=== PATIENT | female | born 1990 | race Caucasian/White ===

== ENCOUNTER 2017-08-23 11:04 | Inpatient (IN) | payer OTHER ==
[~2017-08-23] VITALS: Ht 165.1 cm; Wt 74.6 kg
[~2017-08-23 11:04] MED LIST: ADVIL200 MG PO; ALBUTEROL2.5 MG/3 M IH; ALLEGRA ALLERG180 MG PO; AMBIEN10 MG PO; ATARAX,VISTARIL50 MG PO; BENADRYL50 MG PO; BUSPAR10 MG PO; CELEXA40 MG PO; DEPADE50 MG PO; DULERA 100 MCG/13 GM IH; FLUVOXAMINE MA100 MG PO; IRON325 M1 PO; IRON325 MG PO; LUVOX50 MG PO; MEDROXYPRO150 MG/1 M IM; MELATIN3 MG PO; MELATONIN3 MG PO; MIRALAX255 GM PO; MUCINEX DM ER1 EACH PO; MUCINEX FAST-M1 EAC2 PO; NALTREXONE HCL50 MG PO; PEPCID20 MG PO; PREVACID 24HR15 MG PO; PREVACID15 MG PO; PROAIR HFA8.5 GM IH; PROMETHAZINE HC25 M1 PO; PULMICORT FLE180 MCG IH; PULMICORT0.5 MG/21 IH; REVIA50 MG PO; SINGULAIR10 MG PO; TOPAMAX50 MG PO; TRAZODONE HCL100 MG PO; VENLAFAXINE HCL75 M3 PO; VITAMIN D2000 UNI1 PO; VITAMIN D31000 UNIT PO; WELLBUTRIN SR150 MG PO; WELLBUTRIN XL300 MG PO; ZONISAMIDE100 MG PO
[2017-08-23 12:47] LABS: BASOPHIL COUNT 0.1 K/uL (0-0.1); EOSINOPHIL (%) 4.3 % (0-5); EOSINOPHIL COUNT 0.3 K/uL (0-0.3); HEMATOCRIT 40.3 % (36.0-46.0); IMMATURE GRANULOCYTE COUNT 0.2 K/uL; INSTRUMENT ABS NEUTROPHIL CT 3.1 K/uL; LYMPHOCYTE COUNT 1.6 K/uL (1.0-2.8); MCH 30.3 PG (29.0-34.0); MCV 91.8 FL (83-99); MEAN PLAT.VOLUME 10.8 uM^3 (9.5-12.4); MONOCYTE (%) 10.1 % (3-12); MONOCYTE COUNT 0.6 K/uL (0-0.8); NEUTROPHIL (%) 54.4 % (45-76); NEUTROPHIL COUNT 3.1 K/uL (1.8-6.4); PLATELET COUNT 162 K/uL (156-360); RBC DIS.WIDTH-CV 11.9 % (11.8-14.6); RBC DIS.WIDTH-SD 40.3 % (39-53); RED BLOOD COUNT 4.39 M/uL (3.80-5.20); WHITE BLOOD COUNT 5.8 K/uL (4.1-10.2)
[2017-08-23 12:55] LABS: CHLORIDE 112 mEq/L (99-109); POTASSIUM 4.5 mEq/L (3.7-5.4); SODIUM 139 mEq/L (136-147)
[2017-08-23 12:57] LABS: GLUCOSE 93 mg/dL (70-99)
[2017-08-23 12:59] LABS: ANION GAP 8 MEQ/L (2-14)
[2017-08-23 13:00] LABS: SERUM ETHYL ALCOHOL < 10 mg/dL
[2017-08-23 13:01] LABS: GFR ESTIMATE (CALCULATED) > 59 mL/min/
[2017-08-23 13:02] LABS: UREA NITROGEN (BUN) 28 mg/dL (9-23)
[2017-08-23 13:03] LABS: ADD MIUA? NO; BILIRUBIN NEGATIVE; BLOOD NEGATIVE; COLOR YELLOW ((YELLOW)); GLUCOSE (STRIP) NEGATIVE; KETONES NEGATIVE; LEUKOCYTES NEGATIVE; NITRITE NEGATIVE; PROTEIN (STRIP) NEGATIVE; SPECIFIC GRAVITY 1.011 (1.000-1.030); UROBILINOGEN 0.2 MG/DL (0.2-1.0)
[2017-08-23 13:11] LABS: AMPHETAMINE NEGATIVE (500 ng/mL); BARBITURATES NEGATIVE (200 ng/mL); BENZODIAZEPINES NEGATIVE (150 ng/mL); COCAINE NEGATIVE (150 ng/mL); INTERNAL CONTROLS VALID? YES; METHADONE NEGATIVE (200 ng/mL); METHAMPHETAMINE NEGATIVE (500 ng/mL); OPIATES (MORPHINE) NEGATIVE (100 ng/mL); OXYCODONE NEGATIVE (100 ng/mL); PHENCYCLIDINE NEGATIVE (25 ng/mL); PROPOXYPHENE NEGATIVE (300 ng/mL); THC CANNABINOIDS NEGATIVE (50 ng/mL); TRICYCLIC ANTIDEPRESSANTS NEGATIVE (300 ng/mL)
[2017-08-23 13:12] LABS: QUANTITATIVE HCG < 4.0 MIU/ML
[2017-08-23 15:25] VITALS: BP 101/60
[2017-08-23] MEDS ORDERED: TOPAMAX100 MG PO (16:00)
[2017-08-23] MEDS ORDERED: COGENTIN0.5 MG PO (16:02)
[2017-08-23] MEDS ORDERED: HALDOL5 MG PO (16:03)
[2017-08-23] MEDS ORDERED: ATARAX,VISTARIL50 MG PO (16:03)
[2017-08-23] MEDS ORDERED: KLONOPIN1 MG PO (16:06)
[2017-08-23] MEDS ORDERED: ZYPREXA5 MG PO (16:06)
[2017-08-23 16:14] VITALS: BP 101/60
[2017-08-24 07:46] VITALS: BP 103/54
[2017-08-24 15:34] VITALS: BP 108/58
[2017-08-25 07:25] VITALS: BP 102/56
[2017-08-25 15:47] VITALS: BP 110/64
[2017-08-26 07:46] VITALS: BP 98/54
[2017-08-26 15:23] VITALS: BP 115/72
[2017-08-27 07:53] VITALS: BP 89/47
[2017-08-27] MEDS ORDERED: LUVOX50 MG PO (10:01)
[2017-08-27] MEDS ORDERED: QUETIAPINE FUM100 MG PO (10:01)
[2017-08-27] MEDS ORDERED: HYDROXYZINE PAM50 MG PO (10:01)
== END 2017-08-27 12:30 | disposition home or self-care (01) | DRG 885 ==
LOC: EME 11:04 → EDOF 13:14 → 1WEST 13:14 → ENRESERV 15:00 → 1WEST 15:22
PROVIDERS: Emergency Medicine
DX: F33.3 Major depressive disorder, recurrent, severe with psychotic symptoms (principal); R45.851 Suicidal ideations; F41.1 Generalized anxiety disorder; F60.3 Borderline personality disorder; J45.909 Unspecified asthma, uncomplicated; K21.9 Gastro-esophageal reflux disease without esophagitis; G43.909 Migraine, unspecified, not intractable, without status migrainosus; Z91.5 Personal history of self-harm
CPT/HCPCS: 80048; 81003; 84702; 85025; 90839; 94640; 94640 76; 97150 GO; 97165 GO; 99202; 99281; 99285; G0480; Q0177